=== PATIENT | male | born 1945 | race Caucasian/White ===

== ENCOUNTER 2018-07-29 22:47 | Emergency (ER) | payer SELFPAY ==
--- NOTE | 2018-07-29 23:25 | EDM.PDOC ---
ED HPI GENERAL MEDICAL PROBLEM - General Chief Complaint: Skin Complaint Stated Complaint: TICK BITE Time Seen by Provider: 07/29/18 23:05 Source of Information: Reports: Patient History Limitations: Reports: No Limitations - History of Present Illness INITIAL COMMENTS - FREE TEXT/NARRATIVE: According to patient he noticed a large wood tick over posterior aspect of the right knee on 07/25/18, which was large. He pulled it off the sick and there was some bleeding from the bite. In the next few days he noticed redness over the back of his right knee. He came into emergency room today as he has been having pain behind the knee and the redness has not cleared up. He claims he feels cold , but no fever or chills. No joint pain or joint swelling. Right leg does not hurt to walk. no cough, wheezing or shortness of breath. No headache. No other complaints. Onset Date: 07/25/18 Location: Reports: Lower Extremity, Right Quality: Reports: Ache Severity: Mild Improves with: Reports: None Worsens with: Reports: None Associated Symptoms: Reports: Rash. Denies: Confusion, Chest Pain, Cough, Diaphoresis, Fever/Chills, Headaches, Nausea/Vomiting, Seizure, Shortness of Breath, Syncope, Weakness Behind Right Knee Pain Score (Numeric/FACES): 5 - Related Data Allergies Allergy/AdvReac Type Severity Reaction Status Date / Time No Known Allergies Allergy Verified 07/29/18 23:06 Home Meds: Home Meds Pramipexole [Mirapex] 0.5 mg PO BEDTIME 07/29/18 [History] ED ROS GENERAL - Review of Systems Review Of Systems: See Below Constitutional: Denies: Fever, Chills, Weakness, Night Sweats, Diaphoresis HEENT: Denies: Ear Pain, Rhinitis, Throat Pain, Vision Change Respiratory: Denies: Shortness of Breath, Pleuritic Chest Pain, Cough, Sputum Cardiovascular: Denies: Chest Pain, Lightheadedness GI/Abdominal: Denies: Abdominal Pain, Nausea, Vomiting : Denies: Dysuria, Frequency Musculoskeletal: Denies: Joint Pain, Joint Swelling, Muscle Pain Skin: Reports: Bruising, Wound. Denies: Pruritis, Rash ED EXAM, SKIN/RASH Exam: See Below Exam Limited By: No Limitations General Appearance: Alert, WD/WN, No Apparent Distress Eye Exam: Bilateral Eye: EOMI, PERRL Ears: Normal External Exam, Normal Canal, Hearing Grossly Normal, Normal TMs Nose: Normal Inspection, Normal Mucosa, No Blood Throat/Mouth: Normal Inspection, Normal Lips, Normal Teeth, Normal Gums, Normal Oropharynx, Normal Voice, No Airway Compromise Head: Atraumatic, Normocephalic Neck: Normal Inspection, Supple, Non-Tender, Full Range of Motion Respiratory/Chest: No Respiratory Distress, Lungs Clear, Normal Breath Sounds, No Accessory Muscle Use, Chest Non-Tender Cardiovascular: Normal Peripheral Pulses, Regular Rate, Rhythm, No Edema, No Gallop, No JVD, No Murmur, No Rub GI/Abdominal: Normal Bowel Sounds, Soft, Non-Tender, No Organomegaly, No Distention, No Abnormal Bruit, No Mass Extremities: Normal Inspection, Normal Range of Motion, Non-Tender, No Pedal Edema, Normal Capillary Refill Neurological: Alert, Oriented, CN II-XII Intact, Normal Cognition Skin: Warm, Intact, Lymphangitis (noted over the posterior aspect of the right thigh), Other Location, Skin: Other (Right knee: there is a large area of irregular skin bruising over the posterior aspect of the knee. Approximately 14 cms long by 6cms at the maximum width. In the center of the rash, there is 3mm dry black scab.The rash does not kristopher with pressure. The distal end of the rash is warm and tender to palpation. There are streaks of lymphangitis extending from the rash and spreading proximally over the lower and mid thigh posteriorly. No lymphadenopathy noted.) Lymphatic: No Adenopathy Front/Back Body Diagram: 1 - the rash described in notes Course - Vital Signs Text/Narrative:: Pt appears to have skin bruising following the tick bite. There is a dark scab in the center. The rash does not have bull eye pattern. Also the tick was wood tick. Th chance of lyme's disease is low. It does appear like he has developed superficial skin infection from the tick bite, which might be developing into superficial cellulitis. There is definite lymphangitis noted spreading proximally into mid and upper thigh. CBC done today appears normal. I am empirically treating patient of superficial skin infection. As this is tick bite my preference of antibiotic is Doxycycline. Counselled patient on side effects. Started him on Doxycycline 100mg twice daily for 10 days. Warm compresses to the area. Avoid scratching the rash. should heal without any complication. the skin bruising might take upto 2 wks to clear up. and might spread a little further around the margins sometimes. Last Recorded V/S: Last Vital Signs Temp 98.2 F 07/29/18 23:00 Pulse 78 07/29/18 23:00 Resp 18 07/29/18 23:00 BP 160/70 H 07/29/18 23:00 Pulse Ox 98 07/29/18 23:00 - Orders/Labs/Meds Labs: Laboratory Tests 07/29/18 Range/Units 23:45 WBC 8.4 (4.0-11.0) K/uL RBC 4.12 L (4.50-6.50) M/uL Hgb 13.0 (13.0-18.0) g/dL Hct 39.1 L (40.0-54.0) % MCV 95 (76-96) fL MCH 31.6 (27.0-32.0) pg MCHC 33.2 (31.0-35.0) g/dL RDW 13.1 (11.0-16.0) % Plt Count 248 (150-400) K/uL MPV 9.1 (6.0-10.0) fL Neut % (Auto) 61.5 (45.0-70.0) % Lymph % (Auto) 24.1 (20.0-40.0) % Park % (Auto) 10.2 H (3.0-10.0) % Eos % (Auto) 4.1 (1.0-5.0) % Baso % (Auto) 0.1 (0.0-0.5) % Neut # (Auto) 5.19 (2.00-7.50) K/uL Lymph # (Auto) 2.03 (1.50-4.00) K/uL Park # (Auto) 0.86 H (0.20-0.80) K/uL Eos # (Auto) 0.35 (0.04-0.40) K/uL Baso # (Auto) 0.01 L (0.02-0.10) K/uL Departure - Departure Time of Disposition: 23:55 Disposition: Home, Self-Care 01 Condition: Fair Clinical Impression: Tick bite, Lymphangitis - Discharge Information *PRESCRIPTION DRUG MONITORING PROGRAM REVIEWED*: Not Applicable *COPY OF PRESCRIPTION DRUG MONITORING REPORT IN PATIENT AFSANEH: Not Applicable Instructions: Cellulitis, Adult, Doxycycline tablets or capsules Referrals: PCP,None [Primary Care Provider] - Forms: ED Department Discharge Additional Instructions: Pt appears to have skin bruising following the tick bite. There is a dark scab in the center. The rash does not have bull eye pattern. Also the tick was wood tick. Th chance of lyme's disease is low. It does appear like he has developed superficial skin infection from the tick bite, which might be developing into superficial cellulitis. There is definite lymphangitis noted spreading proximally into mid and upper thigh. CBC done today appears normal. I am empirically treating patient of superficial skin infection. As this is tick bite my preference of antibiotic is Doxycycline. Counselled patient on side effects. Started him on Doxycycline 100mg twice daily for 10 days. Warm compresses to the area. Avoid scratching the rash. should heal without any complication. the skin bruising might take upto 2 wks to clear up. and might spread a little further around the margins sometimes. Advsied to return if he develops high grade fever or chills, Lethargy, severe leg swelling. Otherwise followup with his primary care next week for recheck. - Problem List & Annotations (1) Lymphangitis SNOMED Code(s): 5298726 Code(s): I89.1 - LYMPHANGITIS Status: Acute Current Visit: Yes (2) Tick bite SNOMED Code(s): 24361182, 765984568 Code(s): W57.XXXA - BIT/STUNG BY NONVENOM INSECT & OTH NONVENOM ARTHROPODS, INIT Status: Acute Current Visit: Yes - Problem List Review Problem List Initiated/Reviewed/Updated: Yes - Assessment/Plan Assessment:: Right leg tick bite with lymphangitis Plan: Pt appears to have skin bruising following the tick bite. There is a dark scab in the center. The rash does not have bull eye pattern. Also the tick was wood tick. Th chance of lyme's disease is low. It does appear like he has developed superficial skin infection from the tick bite, which might be developing into superficial cellulitis. There is definite lymphangitis noted spreading proximally into mid and upper thigh. CBC done today appears normal. I am empirically treating patient of superficial skin infection. As this is tick bite my preference of antibiotic is Doxycycline. Counselled patient on side effects. Started him on Doxycycline 100mg twice daily for 10 days. Warm compresses to the area. Avoid scratching the rash. should heal without any complication. the skin bruising might take upto 2 wks to clear up. and might spread a little further around the margins sometimes.
[2018-07-29] MEDS ORDERED: Doxycycline 100 MG Cap ONE (23:55)
== END 2018-07-30 00:08 | disposition home or self-care (01) ==
LOC: LB.ED 22:47
DX: S80.861A Insect bite (nonvenomous), right lower leg, initial encounter (principal); I89.1 Lymphangitis; Z79.899 Other long term (current) drug therapy; W57.XXXA Bitten or stung by nonvenomous insect and other nonvenomous arthropods, initial encounter
CPT/HCPCS: 36415; 85025; 99281; A9270